=== PATIENT | male | born 1970 | race Caucasian/White ===

== ENCOUNTER 2019-05-11 11:54 | Inpatient (IN) ==
[2019-05-11] MEDS ORDERED: TORADOL IV ONE (12:33)
[2019-05-11] MEDS ORDERED: DECADRON IV ONE (12:34)
[2019-05-11 12:44] LABS: BASO# 0.03 X1000 (0.0-0.2); BASO% 0.1 % (0.0-0.8); HEMATOCRIT 45.1 % (42.0-52.0); HEMOGLOBIN 15.2 g/dL (14.0-18.0); IMM GRAN# 0.08 X1000 (0.0-0.04); IMM GRAN% 0.4 % (0.0-0.5); LYMPH# 0.98 X1000 (1.2-3.4); LYMPH% 4.8 % (20.5-51.1); MCH 27.8 PG (27-31); MCHC 33.7 g/dL (33-37); MCV 82.6 FL (81-99); MONO# 2.37 X1000 (0.11-0.59); MONO% 11.6 % (1.7-9.3); MPV 9.8 FL (7.4-10.4); NEUT# 17.01 X1000 (1.4-6.5); NEUT% 83.1 % (42.2-75.2); PLT 370 X1000 (130-400); RBC 5.46 XMIL (4.7-6.1); RDW 13.6 % (11.5-14.5); WBC 20.47 X1000 (4.8-10.8)
[2019-05-11 12:45] LABS: AGAP 16; ALKALINE PHOSPHATASE 84 U/L (32-122); BUN 18 mg/dL (8-22); CALCIUM 9.3 mg/dL (8.8-10.2); CHLORIDE 92 mmol/L (98-107); COSMO 270; CREATININE 1.1 mg/dL (0.7-1.2); ESTIMATED GFR > 60; GLUCOSE 121 mg/dL (70-104); GOT 10 U/L (10-34); GPT 11 U/L (10-44); POTASSIUM 4.4 mmol/L (3.5-5.1); SODIUM 133 mmol/L (136-145); TCO2 24 mmol/L (25-35); TOTAL PROTEIN 8.9 g/dL (6.3-8.3)
[2019-05-11 13:15] LABS: URINE SOURCE CLEAN CATCH
--- NOTE | 2019-05-11 13:17 | Diag Imaging Result Doc PS360 ---
KNEE 3 VIEWS LEFT - 05/11/2019 INDICATION: warm swollen,tender left knee TECHNIQUE: Three views COMPARISON: None FINDINGS: There is a small nonspecific joint effusion. There are two surgical screws in the patella. No fracture or dislocation. No bony erosions. There is mild to moderate, triple compartment osteoarthritis of the knee. IMPRESSION: Knee osteoarthritis. Nonspecific joint effusion. Electronically signed by Zach Jorgensen 05/11/2019 1:14 PM
[2019-05-11 13:19] LABS: BILIRUBIN URINE NEGATIVE (NEGATIVE); BLOOD URINE MODERATE (NEGATIVE); COLOR YELLOW; GLUCOSE URINE NEGATIVE (NEGATIVE); KETONE URINE 20 mg/dL (NEGATIVE); LEUKOCYTES URINE NEGATIVE (NEGATIVE); NITRITE URINE NEGATIVE (NEGATIVE); PROTEIN URINE 200 mg/dL (NEGATIVE); SP GRAVITY URINE 1.022; TURBIDITY URINE CLEAR (CLEAR); UROBILINOGEN URINE NORMAL (NORMAL)
--- NOTE | 2019-05-11 13:19 | Diag Imaging Result Doc PS360 ---
LUMBAR SPINE - 05/11/2019 INDICATION: lbp and tender TECHNIQUE: Six views COMPARISON: None FINDINGS: Alignment is anatomic. Vertebral body heights and intervertebral disc spaces are preserved. There is moderate multilevel degenerative disc disease, worst at the lower thoracic spine but also involving the lumbar spine diffusely. There is also advanced multilevel facet degeneration with sclerosis and hypertrophy. The sacroiliac joints demonstrate mild degeneration. IMPRESSION: Degenerative changes. No acute disease. Electronically signed by Zach Jorgensen 05/11/2019 1:17 PM
[2019-05-11 13:20] LABS: UR EPITHELIAL CELLS <10 /HPF (<10); URINE BACTERIA NEGATIVE /HPF; URINE RBC TNTC /HPF (<10); URINE WBC <10 /HPF (<10)
[2019-05-11 13:28] LABS: BANDS 2 % (0-1); LYMPHS 5 % (21-51); MONO 9 % (1-9); SEGS 84 % (42-75)
--- NOTE | 2019-05-11 15:00 | Diag Imaging Result Doc PS360 ---
EXAM: CT ABD/PELVIS W/IV CONT ONLY HISTORY: LBP,ABD PAIN TECHNIQUE: CT abdomen and pelvis with intravenous contrast. COMPARISON: None. FINDINGS: No calcified gallstones or adjacent inflammation. There is no focal hepatic abnormality. The may be mild fatty infiltration. The spleen measures 13.8 cm in length. Normal pancreas and adrenal glands. Normal aorta. There are tiny renal cysts. No hydronephrosis. No bowel obstruction. Normal appendix. No abscess. No ascites. The urinary bladder is distended and appears normal. Normal prostate. There are small iliac and inguinal nodes. Moderate degenerative changes with multilevel bilateral stenosis. IMPRESSION: 1.Mild splenomegaly 2.There is mild fatty infiltration of liver 3.Small iliac and inguinal lymph nodes 4.Degenerative changes with multilevel spinal stenosis This exam was performed using automated exposure control, adjustment of mA or kV according to patient size, and/or use of iterative reconstruction technique. Electronically signed by Jarred Lazo 05/11/2019 2:57 PM
--- NOTE | 2019-05-11 16:11 | PROVIDER DOCUMENTATION ---
This chart was entered by Gifty Edward Scribe, acting as scribe for Marcello Knutson MD. HPI-Musculoskeletal Pain/Inj - GENERAL Chief Complaint: Flank Pain Stated Complaint: FLANK PAIN Time Seen by Provider: 05/11/19 11:57 Source: patient - HX OF PRESENT ILLNESS-MUSKULOSKELTAL Nature of Presenting Problem: Patient is a 48 year old male who presents to the ED via EMS with bilateral lower back pain. States pain started 2 days ago. Denies injury. Reports left knee pain. History of gout and kidney stones. Denies urinary symptoms. Quality of Pain: reports: aching Severity in ED: mild Onset/Duration: 2 days ago Timing: still present Modifying Factors: worse with: movement Any recent injury?: No Locality of Occurance: Home Similar Symptoms Previously?: Yes Recently seen or treated by another doctor?: No - BACK & NECK PAIN/INJURY Back/Neck Pain Location: reports: lumbar spine (bilateral) Context / Method of Injury: reports: unknown - LOWER EXTREMITY PAIN/INJURY Lower Extremities Pain: knee: left Context / Method of Injury: reports: unknown Associated Symptoms: denies: numbness in legs/feet, tingling in legs/feet, weakness in legs/feet Review of Systems - Adult - REVIEW OF SYSTEMS - ADULT Constitutional: reports: chills, fever Eyes: reports: no symptoms reported Ears, Nose, Mouth & Throat: reports: no symptoms reported Cardiovascular: reports: no symptoms reported Respiratory: reports: no symptoms reported Gastrointestinal: reports: no symptoms reported Genitourinary: reports: no symptoms reported. denies: dysuria, hematuria Musculoskeletal: reports: see HPI, back pain, muscle weakness, other (left knee pain). denies: neck pain Integumentary: reports: no symptoms reported Neurological: reports: no symptoms reported Psychiatric: reports: no symptoms reported Endocrine: reports: no symptoms reported Hematologic/Lymphatic: reports: no symptoms reported Allergic/Immunologic: reports: no symptoms reported All Other Systems: Reviewed and Negative Past History - Adult - PAST MEDICAL HISTORY-ADULT Review of Records: reports: Old Records Reviewed, Nursing Assessment Review, Medications Reviewed, Social history reviewed & non-contributory. Major Childhood Illnesses: reports: denies history Cardiovascular: reports: HTN Respiratory: reports: COPD, other (pleursiy) Gastrointestinal: reports: denies history Obstetrical/Gynecological: reports: denies history Genitourinary: reports: denies history Musculoskeletal: reports: other (Gout) Neurological: reports: denies history Psychiatric: reports: denies history Endocrine/Immune: reports: denies history Other Conditions: reports: denies history - PRIOR SURGERIES/PROCEDURES Surgical/Procedure History: reports: reviewed, not pertinent, orthopedic (extremity), joint replacement - IMMUNIZATION STATUS Childhood Immunizations: See Nurse Assessment Flu Vaccine: See Nurse Assessment - FAMILY HISTORY Family History: reviewed, not pertinent - SOCIAL HISTORY Smoking: denies Substance Use: denies Physical Exam-Injury Related - Physical Exam-Injury Related Initial Vital Signs Reviewed: Yes General Appearance: alert, no apparent distress Head, Ears, Nose, Mouth & Throat: normocephalic/atraumatic, moist mucous membranes Respiratory: chest non-tender, lungs clear, normal breath sounds Cardiovascular: regular rate, rhythm, no gallop, no murmur Abdominal Exam: normal bowel sounds, non tender, soft Back Exam: no vertebral tenderness, other (bilateral paralumber muscle tenderness) Extremity: swelling (left knee and left ankle), tenderness (left knee and left achilles), other (warmth to left knee) Integumentary: warm (left knee) Neurologic: grossly normal Psych/Mental Status: normal mood/affect, normal thought content, normal thought process, oriented x 3 Progress - PLAN OF CARE/RESULTS Progress/Plan/Lab Results: Vital Signs - 8 hr 05/11/19 11:52 05/11/19 14:48 Temperature 98.8 F Pulse Rate 120 H 102 H Respiratory Rate 20 18 Blood Pressure 146/90 152/73 O2 Sat by Pulse Oximetry 98 95 Laboratory Results - last 24 hr 05/11/19 05/11/19 05/11/19 12:00 12:00 12:00 WBC 20.47 H RBC 5.46 Hgb 15.2 Hct 45.1 MCV 82.6 MCH 27.8 MCHC 33.7 RDW Std Deviation 13.6 Plt Count 370 MPV 9.8 Immature Gran % (Auto) 0.4 Neut % (Auto) 83.1 H Lymph % (Auto) 4.8 L [place] % (Auto) 11.6 H Eos % (Auto) 0.0 Baso % (Auto) 0.1 Immature Gran # (Auto) 0.08 H Neut # (Auto) 17.01 H Lymph # (Auto) 0.98 L [place] # (Auto) 2.37 H Eos # (Auto) 0.00 Baso # (Auto) 0.03 Segmented Neutrophils 84 H Band Neutrophils 2 H Lymphocytes 5 L Monocytes 9 Sodium 133 L Potassium 4.4 Chloride 92 L Carbon Dioxide 24 L Anion Gap 16 BUN 18 Creatinine 1.1 Estimated GFR/1.73 m2 > 60 BUN/Creatinine Ratio 16 Glucose 121 H Calculated Osmolality 270 Uric Acid 9.1 H Calcium 9.3 Total Bilirubin 0.90 AST 10 ALT 11 Alkaline Phosphatase 84 Total Protein 8.9 H Albumin 4.0 Globulin 5.0 Albumin/Globulin Ratio 1.0 Urine Source Urine Color Urine Turbidity Urine pH Ur Specific [place] Urine Protein Ur Glucose (Stick) Ur Ketones (Stick) Urine Blood Urine Nitrite Urine Bilirubin Urobilinogen Dipstick Urine Leukocytes Urine WBC (Auto) Urine RBC (Auto) U Epithel Cells (Auto) Urine Bacteria (Auto) 05/11/19 13:10 WBC RBC Hgb Hct MCV MCH MCHC RDW Std Deviation Plt Count MPV Immature Gran % (Auto) Neut % (Auto) Lymph % (Auto) [place] % (Auto) Eos % (Auto) Baso % (Auto) Immature Gran # (Auto) Neut # (Auto) Lymph # (Auto) [place] # (Auto) Eos # (Auto) Baso # (Auto) Segmented Neutrophils Band Neutrophils Lymphocytes Monocytes Sodium Potassium Chloride Carbon Dioxide Anion Gap BUN Creatinine Estimated GFR/1.73 m2 BUN/Creatinine Ratio Glucose Calculated Osmolality Uric Acid Calcium Total Bilirubin AST ALT Alkaline Phosphatase Total Protein Albumin Globulin Albumin/Globulin Ratio Urine Source CLEAN CATCH Urine Color YELLOW Urine Turbidity CLEAR Urine pH 6.0 Ur Specific [place] 1.022 Urine Protein 200 A Ur Glucose (Stick) NEGATIVE Ur Ketones (Stick) 20 A Urine Blood MODERATE A Urine Nitrite NEGATIVE Urine Bilirubin NEGATIVE Urobilinogen Dipstick NORMAL Urine Leukocytes NEGATIVE Urine WBC (Auto) <10 Urine RBC (Auto) TNTC A U Epithel Cells (Auto) <10 Urine Bacteria (Auto) NEGATIVE Orders Category Date Time Status Saline Loc NOW Care 05/11/19 12:[address] ABD/PELVIS W/IV CONT ONLY [CT] Stat Exams 05/11/19 13:21 Completed KNEE 3 VIEWS LEFT [RAD] Stat Exams 05/11/19 12:13 Completed LUMBAR SPINE [RAD] Stat Exams 05/11/19 12:12 Completed BLOOD CULTURE [BLDCUL] Stat Lab 05/11/19 15:59 Ordered CBC WITH DIFF [HEME] Stat Lab 05/11/19 12:00 Completed CMP [COMPREHENSIVE METABOLIC PANEL] [CHEM] Stat Lab 05/11/19 12:00 Completed LACTATE, PLASMA [CHEM] Stat Lab 05/11/19 15:59 Ordered URIC ACID [CHEM] Stat Lab 05/11/19 12:00 Completed URINALYSIS W/POSS RFLX CULT [URINALYSIS] Stat Lab 05/11/19 13:10 Completed Dexamethasone [Decadron] Med 05/11/19 12:34 Discontinued 10 mg IV NOW ONE Ketorolac [Toradol] Med 05/11/19 12:33 Discontinued 30 mg IV NOW ONE Result Diagrams: 05/11/19 12:00 05/11/19 12:00 - XRAY 1 XRAY Study: Lumbar Spine Impression: See EMR Report ( LUMBAR SPINE - 05/11/2019 INDICATION: lbp and tender TECHNIQUE: Six views COMPARISON: None FINDINGS: Alignment is anatomic. Vertebral body heights and intervertebral disc spaces are preserved. There is moderate multilevel degenerative disc disease, worst at the lower thoracic spine but also involving the lumbar spine diffusely. There is also advanced multilevel facet degeneration with sclerosis and hypertrophy. The sacroiliac joints demonstrate mild degeneration. IMPRESSION: Degenerative changes. No acute disease. Electronically signed by Zach Jorgensen 05/11/2019 1:17 PM 05/11/19 1317 Interpreting Physician: Zach Jorgensen MD Dictated Date/Time: 05/11/19 1314 cc: Marcello Knutson MD;) 2 XRAY: Left XRAY Study: Knee Impression: See EMR Report ( KNEE 3 VIEWS LEFT - 05/11/2019 INDICATION: warm swollen,tender left knee TECHNIQUE: Three views COMPARISON: None FINDINGS: There is a small nonspecific joint effusion. There are two surgical screws in the patella. No fracture or dislocation. No bony erosions. There is mild to moderate, triple compartment osteoarthritis of the knee. IMPRESSION: Knee osteoarthritis. Nonspecific joint effusion. Electronically signed by Zach Jorgensen 05/11/2019 1:14 PM 05/11/19 1314 Interpreting Physician: Zach Jorgensen MD Dictated Date/Time: 05/11/19 1313 cc: Marcello Knutson MD;) - CT/MRI 1 CT Study: Abdomen, Pelvis Impression: See EMR Report ( EXAM: CT ABD/PELVIS W/IV CONT ONLY HISTORY: LBP,ABD PAIN TECHNIQUE: CT abdomen and pelvis with intravenous contrast. COMPARISON: None. FINDINGS: No calcified gallstones or adjacent inflammation. There is no focal hepatic abnormality. The may be mild fatty infiltration. The spleen measures 13.8 cm in length. Normal pancreas and adrenal glands. Normal aorta. There are tiny renal cysts. No hydronephrosis. No bowel obstruction. Normal appendix. No abscess. No ascites. The urinary bladder is distended and appears normal. Normal prostate. There are small iliac and inguinal nodes. Moderate degenerative changes with multilevel bilateral stenosis. IMPRESSION: 1.Mild splenomegaly 2.There is mild fatty infiltration of liver 3.Small iliac and inguinal lymph nodes 4.Degenerative changes with multilevel spinal stenosis This exam was performed using automated exposure control, adjustment of mA or kV according to patient size, and/or use of iterative reconstruction technique. Electronically signed by Jarred Lazo 05/11/2019 2:57 PM 05/11/19 1457 Interpreting Physician: Jarred Lazo MD Dictated Date/Time: 05/11/19 1451 cc: Marcello Knutson MD; None,PCP) - CONSULTS/PCP/HOSPITALIST Notification #1 *Consult/PCP/Hospitalist*: DR CAMARGO Time Discussed: 15:50 Consult Disposition: Admit Departure - Departure Date of Disposition Decision: 05/11/19 Time of Disposition Decision: 15:55 DIAGNOSIS: Diaphoresis, Gross hematuria, Lumbar pain, Splenomegaly Leukocytosis, unspecified Qualifiers: Leukocytosis type: unspecified Qualified Code(s): D72.829 - Elevated white b lood cell count, unspecified Acute gout due to renal impairment involving knee Qualifiers: Laterality: left Qualified Code(s): M10.362 - Gout due to renal impairment, left knee Disposition: ADMITTED INPATIENT 09 Certified Medical Emergency: Emergent Condition: Stable Referrals and Follow-Ups: None,PCP [Primary Care Provider] - - Critical Care Note This patient required my direct & personal management of CC.: No Attestation - Physician/ JATIN Attestation The physician spent face to face time with patient:: Yes Advanced Practice Provider documentation review:: Supervising physician onsite and consulted in the evaluation and care of this patient. The physician did have a face to face encounter with the patient. This chart was documented by the indicated scribe, (Gifty Edward, Mikey) and accurately reflects the services I performed and decisions made by me, Marcello Knutson MD, as attested by the provider's signature.
[2019-05-11] MEDS ORDERED: TYLENOL PO PRN (18:04)
[2019-05-11] MEDS ORDERED: ZOFRAN IV PRN (18:04)
[2019-05-11] MEDS ORDERED: COLCRYS PO ONE (18:05)
[2019-05-11] MEDS: ZOSYN 3.375 GM in NS 50 ML IV SCH (18:24)
[2019-05-11] MEDS ORDERED: DILAUDID IV ONE (18:30)
--- NOTE | 2019-05-11 19:36 | HISTORY AND PHYSICAL ---
CHIEF COMPLAINT: Fever and back pain. HISTORY OF PRESENT ILLNESS: The patient is a 48-year-old male who has a known history of gout, presents to the ER complaining of bilateral flank pain. States it hurts a little bit when he urinates. He does have a history of a kidney stone some years ago. States it feels rather similar to that. He has had low-grade fevers. Denies any chills, nausea, vomiting. Denies any urinary frequency, urgency, or hesitancy. Denies any known blood in his urine or stool. Denies constipation. Does have pain in his left knee. He states he has a history of gout and feels as though this is a gout flare up. REVIEW OF SYSTEMS: As noted above. Does have fevers and recent chills. He has had some nausea, but no vomiting. Denies chest pains, palpitations. Denies headaches, blurred vision, change in vision. Does have bilateral flank pain, as well as left knee pain and swelling. PAST MEDICAL HISTORY: Hypertension, COPD, history of pleurisy, gout. He has had a joint replacement. FAMILY HISTORY: Noncontributory. SOCIAL HISTORY: Patient denies smoking, drinking, or illicit substance use. PHYSICAL EXAMINATION: VITAL SIGNS: Reviewed. Temperature 98 degrees, pulse 102, respiratory 20, BP 146/90, saturation 95% on room air. GENERAL: Patient is awake, pleasant. He is in no respiratory distress. He is an obese male who is sitting on the bed, talking with his family. HEENT: Normocephalic. NECK: Supple. CARDIOVASCULAR: Regular rate. No murmurs. CHEST: Clear, nonlabored. ABDOMEN: Soft, obese, nondistended. EXTREMITIES: Moves all extremities. His left knee is swollen, warm to the touch, but no real erythema. Extremities, no edema. NEUROLOGIC: No focal changes. ASSESSMENT: 1. Leukocytosis. White count is 20. 2. Hematuria. 3. Hyponatremia. 4. Gout with uric acid of 9.1. PLAN: We are going to admit patient to the hospital. We will place him on antibiotics, check a urine culture, and check a renal ultrasound in the morning to evaluate for a kidney stone or possible cause of his hematuria. Certainly may need steroids for his gout flare, but concerned given his white count is already 21 with no clear source. CT demonstrated splenomegaly, fatty liver, and multilevel spinal stenosis. cc: Viktor Oshea MD
[2019-05-11 20:23] LABS: AGAP 17; ALBUMIN 3.7 g/dL (3.5-5.0); ALKALINE PHOSPHATASE 80 U/L (32-122); BUN 25 mg/dL (8-22); CALCIUM 9.2 mg/dL (8.8-10.2); CHLORIDE 93 mmol/L (98-107); COSMO 277; CREATININE 1.2 mg/dL (0.7-1.2); ESTIMATED GFR > 60; GLUCOSE 179 mg/dL (70-104); GOT 8 U/L (10-34); GPT 10 U/L (10-44); MAGNESIUM 1.8 mg/dL (1.5-2.7); POTASSIUM 4.4 mmol/L (3.5-5.1); SODIUM 134 mmol/L (136-145); TCO2 24 mmol/L (25-35); TOTAL PROTEIN 8.4 g/dL (6.3-8.3)
[2019-05-12] MEDS: COLCRYS PO SCH ×3 (00:18→22:32)
[2019-05-12] MEDS: ZOSYN 3.375 GM in NS 50 ML IV SCH ×4 (00:19→17:19)
[2019-05-12 06:01] LABS: HEMATOCRIT 43.1 % (42.0-52.0); HEMOGLOBIN 14.3 g/dL (14.0-18.0); MCH 27.6 PG (27-31); MCHC 33.2 g/dL (33-37); MCV 83.2 FL (81-99); MPV 9.9 FL (7.4-10.4); RBC 5.18 XMIL (4.7-6.1); RDW 13.6 % (11.5-14.5); WBC 17.94 X1000 (4.8-10.8)
[2019-05-12] MEDS ORDERED: MOTRIN PO PRN (10:02)
--- NOTE | 2019-05-12 11:41 | Diag Imaging Result Doc PS360 ---
EXAM: US RENAL 2 (RETROPER) COMPLETE HISTORY: flank pain/hematuria TECHNIQUE: Real-time transabdominal evaluation of the kidneys and bladder. Standard protocol. COMPARISON: None. FINDINGS: Right kidney: 11.7 centimeters in length. Renal echotexture is normal. There is no hydronephrosis, nephrolithiasis, or focal renal mass. Left kidney: 12.2 centimeters in length. Renal echotexture is normal. There is no hydronephrosis, nephrolithiasis, or focal renal mass. Bladder: No focal abnormality is appreciated. IMPRESSION: Normal renal ultrasound. Electronically signed by Fariba Jones 05/12/2019 11:38 AM
[2019-05-12] MEDS: DUONEB (A & A) INH PRN ×2 (17:00→22:29)
--- NOTE | 2019-05-12 20:16 | PROGRESS NOTE ---
DATE: 05/12/2019 SUBJECTIVE: Patient notes he is feeling better but still does not feel back to normal. Denies any fevers. OBJECTIVE: Temperature 97.8, pulse 81, respiratory rate 18, blood pressure 122/61. GENERAL: Patient is pleasant. He is in no distress, sitting up in the bed eating breakfast. HEENT: Normocephalic. NECK: Supple. CV: Regular rate. CHEST: Clear. ABDOMEN: Soft. EXTREMITIES: Moves all extremities. ASSESSMENT: 1. Leukocytosis. His white count is improved from 20 to 17. 2. Hematuria. 3. Hyponatremia. 4. Gout. PLAN: We will continue patient in the hospital. He does appear to be improving. I think his gout certainly may be causing his elevated white count. His renal ultrasound is normal. Hopefully home in the next 1 or 2 days. cc: Viktor Oshea MD
[2019-05-13] MEDS: ZOSYN 3.375 GM in NS 50 ML IV SCH ×2 (00:21→06:02)
[2019-05-13 06:36] VITALS: BP 101/65
[2019-05-13] MEDS: COLCRYS PO SCH (09:47)
--- NOTE | 2019-05-13 12:03 | DISCHARGE SUMMARY ---
ADMISSION DATE: 05/11/2019 DISCHARGE DATE: 05/13/2019 PRIMARY CARE PHYSICIAN: Listed as none. ADMISSION DIAGNOSES: 1. Leukocytosis. 2. Hematuria. 3. Hyponatremia. 4. Gout. DISCHARGE DIAGNOSES: 1. Leukocytosis, improved. 2. Hematuria with urine culture showing no growth. 3. Hyponatremia, improved. 4. Gout. SUMMARY OF FINDINGS: This is a 48-year-old male, who states that it was hurting when he urinated. Had a history of kidney stones. Had some low-grade fevers, but denied any chills, nausea, vomiting, urinary frequency, urgency or hesitancy. No known blood in urine or stool. He was placed on antibiotics. His urine culture grew out no growth. We did a renal ultrasound that showed normal renal ultrasound. Abdomen and pelvic CT showed mild splenomegaly, mild fatty infiltration of liver, small iliac and inguinal lymph nodes and degenerative changes with multilevel spinal stenosis, and it is now felt that he can safely be discharged home. DISCHARGE MEDICATIONS: Include colchicine 0.6 mg p.o. b.i.d., cefdinir 300 mg p.o. b.i.d. FOLLOWUP: He will need to obtain a primary care physician, and we can give him the physician referral line to obtain that in the next 1 to 2 weeks. All discharge instructions were reviewed with the patient, and he verbalized understanding. TIME SPENT: 35 minute discharge. Dictated by ANDERSON Burns for Viktor Oshea MD cc: ANDERSON Burns MD
--- NOTE | 2019-05-13 22:00 | DISCHARGE SUMMARY ---
ADMISSION DATE: 05/11/2019 DISCHARGE DATE: 05/13/2019 ADDENDUM: Patient seen and examined by myself. Full note dictated and discussed with nurse practitioner. On discharge, patient is awake, alert. He is in no distress. His leukocytosis is improved. His gout swelling in his knee is resolved and therefore he will be discharged home. Did discuss with patient using Colcrys as well potentially in the future using allopurinol. He will follow up outpatient with his primary care. TIME SPENT: Greater than 30 minutes was spent. cc: Viktor Oshea MD
== END 2019-05-13 12:56 | disposition home or self-care (01) | DRG 696 ==
LOC: P.ED 11:54 → P.MEDSURG 20:17
PROVIDERS: ATTEND Family Medicine